=== PATIENT | female | born 1935 | race Caucasian/White ===

== ENCOUNTER → 2016-08-13 | Outpatient (CLI) | payer BC, OTHER ==
[~2016-08-13] MED LIST: AREDS PO; ARTIFICIAL TEA1 EACH OP; CYCLOBENZAPRINE5 MG PO; FISH OIL 1,001000 M1; FISH OIL 1,001000 M2 PO; FLAX OIL1000 MG PO; FLAXSEED OIL1000 MG; HYDROCODONE-AP1 EAC6 PO; LANOXIN 0.120.125 M1 PO; MULTIVITAMINS1 EAC7; NORCO 5-325 TA1 EACH PO; NORVASC2.5 MG PO; NORVASC5 MG PO; PREDNISOLO15 MG/5 ML OPHTHALMIC; VITAMIN B-1100 M1 PO; VITAMIN B-12500 MCG PO; VITAMIN B-6100 MG PO; VITAMIN D31000 UNI2 PO
== END ==
LOC: RAD 11:55
DX: M18.11 Unilateral primary osteoarthritis of first carpometacarpal joint, right hand (principal); M18.12 Unilateral primary osteoarthritis of first carpometacarpal joint, left hand; M25.541 Pain in joints of right hand; M25.542 Pain in joints of left hand

== ENCOUNTER → 2016-10-16 | Outpatient (CLI) | payer BC, OTHER | LOC: RAD 01:56 | DX: Z12.31 Encounter for screening mammogram for malignant neoplasm of breast (principal) ==

== ENCOUNTER → 2017-10-17 | Outpatient (CLI) | payer BC, OTHER | LOC: RAD 00:54 | DX: Z12.31 Encounter for screening mammogram for malignant neoplasm of breast (principal) ==

== ENCOUNTER → 2018-10-20 | Outpatient (CLI) | payer BC, OTHER | LOC: RAD 01:17 | DX: Z12.31 Encounter for screening mammogram for malignant neoplasm of breast (principal) ==

== ENCOUNTER → 2019-10-22 | Outpatient (CLI) | payer BC | LOC: BC 08:20 | PROVIDERS: ATTEND Surgery | DX: Z12.31 Encounter for screening mammogram for malignant neoplasm of breast (principal); N64.89 Other specified disorders of breast ==

== ENCOUNTER → 2020-06-16 | Outpatient (CLI) | payer BC | LOC: LAB 10:00 | PROVIDERS: ATTEND Anesthesiology | DX: Z01.812 Encounter for preprocedural laboratory examination (principal); Z20.822 Contact with and (suspected) exposure to COVID-19 ==

== ENCOUNTER → 2020-10-23 | Outpatient (CLI) | payer BC | LOC: RAD 13:12 | PROVIDERS: ATTEND Surgery | DX: Z12.31 Encounter for screening mammogram for malignant neoplasm of breast (principal) ==